=== PATIENT | female | born 1970 ===

== ENCOUNTER 2016-06-27 18:45 | Emergency (ER) | payer BC, MEDICAID ==
[2016-06-27 18:46] VITALS: BMI 29.2
[2016-06-27 18:54] VITALS: BP 126/69; PULSE 84; RESP 20; TEMP 97.1; O2SAT 99
== END 2016-06-27 20:30 | disposition left against medical advice (07) ==
LOC: H.ER 18:45
DX: Z02.89 Encounter for other administrative examinations (principal)

== ENCOUNTER 2016-08-18 15:22 | Emergency (ER) | payer BC, MEDICAID ==
[2016-08-18 15:22] VITALS: BMI 29.2
[2016-08-18 15:52] VITALS: TEMP 97.8
--- NOTE | 2016-08-18 17:20 | ED PDOC ---
HPI: Hypertension/Hypotension Chief Complaint (Provider): Palpitations History Per: Patient History/Exam Limitations: no limitations Onset/Duration Of Symptoms: Sudden Onset (at 3 pm today) Current Symptoms Are (Timing): Gone Now Associated Symptoms: Dizziness, Other (flushing). denies: Chest Pain, Dyspnea, Blurred Vision, Focal Weakness, Headache Quality Of Symptoms: Rapid Heart Rate Severity: None Exacerbating Factor(s): Pos: Recent Change In Medication Additional Complaint(s): 46 year old female with medical history of HTN, DMII, Hyperthyroidism presents to ED due to episode of palpitations associated with flushing of face, jitteriness, and lightheadedness 2 hours ago. Patient states last thursday saw wastewater treatment plant attendant, Dr. Rich Navarro, in which she had an ECHO and EKG done. She was found to have an elevated BP so medication was increased (Lisinopril 10 to 20mg) . Patient states since then has been having feelings that her BP was elevated noting SBP 140-160s. Patient states this episode today had no preceding events. Patient denies chest pain, sob, headache, fever, chills, h/o clots, recent travel, immobilization, back pain, or visual changes. Additional daily meds are : Metoprolol 100mg, Metformin 500mg BID, Methimazole 5mg. PMD: Dr. Nelly Asencio <Van Cohen - Last Filed: 08/19/16 09:26> <Tawny Alcantar - Last Filed: 08/20/16 07:51> Time Seen by Provider: 08/18/16 16:52 Chief Complaint (Nursing): Weakness/Neurological Deficit Past Medical History Reviewed: Historical Data, Nursing Documentation, Vital Signs Vital Signs: Last Vital Signs Temp 97.8 F 08/18/16 15:46 Pulse 66 08/18/16 15:46 Resp 16 08/18/16 15:46 BP 144/94 H 08/18/16 15:46 Pulse Ox 100 08/18/16 15:46 - Medical History PMH: Diabetes, HTN, Hyperthyroidism Denies: Chronic Kidney Disease - Surgical History Other surgeries: thyroid nodule removal - Family History Family History: States: Unknown Family Hx <Van Cohen - Last Filed: 08/19/16 09:26> Vital Signs: Last Vital Signs Temp 97.8 F 08/18/16 15:46 Pulse 59 L 08/19/16 09:27 Resp 18 08/18/16 20:56 BP 118/80 08/18/16 20:56 Pulse Ox 100 08/19/16 09:27 <Tawny Alcantar F - Last Filed: 08/20/16 07:51> - Home Medications Home Medications: Ambulatory Orders Medication Instructions Recorded Aspirin 81 mg PO PRN PRN 11/23/14 Loratadine [Claritin] 10 mg PO DAILY 11/23/14 Metformin Hydrochloride [Metformin] 500 mg PO BID 11/23/14 Methimazole [Tapazole] 7.5 mg PO DAILY 11/23/14 Metoprolol Tartrate [Lopressor] 50 mg PO BID 11/23/14 Docusate [Colace] 100 mg PO BID #14 cap 11/24/14 - Allergies Allergies/Adverse Reactions: Allergies Allergy/AdvReac Type Severity Reaction Status Date / Time pollen extracts Allergy ITCHING Verified 08/18/16 15:46 Review of Systems ROS Statement: Except As Marked, All Systems Reviewed And Found Negative <Van Cohen - Last Filed: 08/19/16 09:26> Physical Exam - Reviewed Nursing Documentation Reviewed: Yes Vital Signs Reviewed: Yes - Physical Exam Appears: Positive for: Well, Non-toxic, No Acute Distress Head Exam: Positive for: ATRAUMATIC, NORMAL INSPECTION, NORMOCEPHALIC Skin: Positive for: Normal Color, Warm, Dry Eye Exam: Positive for: Normal appearance, EOMI, PERRL ENT: Positive for: Normal ENT Inspection Neck: Positive for: Normal, Painless ROM, Supple Cardiovascular/Chest: Positive for: Regular Rate, Rhythm. Negative for: Irregularly Irregular Respiratory: Positive for: Normal Breath Sounds. Negative for: Rales, Rhonchi, Wheezing Gastrointestinal/Abdominal: Positive for: Normal Exam, Bowel Sounds (present), Soft. Negative for: Tenderness Back: Positive for: Normal Inspection Extremity: Positive for: Normal ROM. Negative for: Tenderness, Pedal Edema Neurologic/Psych: Positive for: Alert, gis analyst developer II-XII, Oriented, Gait (normal). Negative for: Motor/Sensory Deficits <Van Cohen - Last Filed: 08/19/16 09:26> - Laboratory Results Result Diagrams: 08/18/16 17:10 08/18/16 17:10 - ECG ECG: Positive for: Interpreted By Me, Viewed By Me ECG Rhythm: Positive for: Normal QRS, Normal ST Segment, Sinus Bradycardia Rate: 59 O2 Sat by Pulse Oximetry: 100 Pulse Ox Interpretation: Normal - Progress ED Course And Treament: Time: 1700 Initial impression: Plan: * CBC * CMP * TSH * D-DIMER * TROPONIN * CARDIAC MONITORING * EKG * POC GLUCOSE * RE-EVAL Time: 1830 D-dimer elevated 0.60. Will obtain CTA at this time. Discussed finding with patient. Time: 1900 Patient signed out to Attending Dr. Alcantar pending CTA. <Van Cohen - Last Filed: 08/19/16 09:26> - Laboratory Results Result Diagrams: 08/18/16 17:10 08/18/16 17:10 <Tawny Alcantar - Last Filed: 08/20/16 07:51> Medical Decision Making Medical Decision Makin yo with palpitations. - labs - CT chest WNL <Tawny Alcantar - Last Filed: 08/20/16 07:51> Disposition - Disposition Disposition Time: 20:56 <Van Cohen - Last Filed: 08/19/16 09:26> <Tawny Alcantar - Last Filed: 08/20/16 07:51> - Clinical Impression Clinical Impression: Palpitations - Disposition Referrals: Nelly Asencio [Family Provider] - Condition: STABLE Additional Instructions: CONTINUE CURRENT MEDICATIONS. Instructions: Radiological Ionic Contrast Media (By injection), Palpitations ( ED)
[2016-08-18 17:40] LABS: BASO # 0.1 K/uL (0.0-0.2); BASO % 0.9 % (0.0-2.0); EOS # 0.1 K/uL (0.0-0.7); HEMATOCRIT 39.8 % (34.0-47.0); LYMPH # 1.8 K/uL (1.0-4.3); MEAN CELL VOLUME 85.5 fl (81.0-99.0); MEAN CORPUSCULAR HEMOGLOBIN 29.5 pg (27.0-31.0); MEAN CORPUSCULAR HGB CONC 34.5 g/dL (33.0-37.0); MONO # 0.5 K/uL (0.0-0.8); MONO % 5.3 % (0.0-10.0); NEUT # 6.3 K/uL (1.8-7.0); NEUT % 71.8 % (50.0-75.0); NRBC % 0.1 % (0.0-0.0); RED CELL DISTRIBUTION WIDTH 13.4 % (11.5-14.5); WHITE BLOOD COUNT 8.7 K/uL (4.8-10.8)
[2016-08-18 18:24] LABS: ALB/GLOB RATIO 1.4 (1.0-2.1); ALKALINE PHOSPHATASE 64 U/L (38-126); ALT/SGPT 47 U/L (9-52); AST/SGOT 36 U/L (14-36); BILIRUBIN,TOTAL 0.7 mg/dl (0.2-1.3); BLOOD UREA NITROGEN 14 mg/dl (7-17); CALCIUM 9.5 mg/dL (8.4-10.2); CARBON DIOXIDE 28 mmol/L (22-30); CHLORIDE 99 mmol/L (98-107); GFR AFRICAN-AMERICAN > 60; GLUCOSE,RANDOM 120 mg/dL (65-105); POTASSIUM 3.5 MMOL/L (3.6-5.0); SODIUM 139 mmol/l (132-148); TOTAL PROTEIN 7.9 G/DL (6.3-8.2)
[2016-08-18] MEDS ORDERED: Sodium Chloride 0.9% 50 ML IV ONE (18:46)
[2016-08-18] MEDS ORDERED: Iodixanol 320 MG/ML 100 ML BOTTLE IV ONE (18:47)
[2016-08-18 18:55] LABS: THYROID STIMULATING HORMONE 1.67 mIU/ML (0.46-4.68)
--- NOTE | 2016-08-18 20:21 | CT ---
EXAM: CT Angiography Chest With Intravenous Contrast CLINICAL HISTORY: 46 years old, female; Signs and symptoms; Other: Palpitations; Patient HX: Pat C/O of palpitation, , denies chest pain dyspnea TECHNIQUE: Axial computed tomographic angiography images of the chest with intravenous contrast using pulmonary embolism protocol. This CT exam was performed using one or more of the following dose reduction techniques: automated exposure control, adjustment of the mA and/or kV according to patient size, and/or use of iterative reconstruction technique. MIP reconstructed images were created and reviewed. Coronal and sagittal reformatted images were created and reviewed. CONTRAST: 90 mL of VISIPAQUE 320 administered intravenously. EXAM DATE/TIME: 08/18/2016 6:23 PM COMPARISON: There are no prior studies for comparison. FINDINGS: Artifacts: Motion artifact degrades image quality. Heart, aorta and Pulmonary arteries: Heart size is normal. There is no pericardial effusion.There is no aneurysm or dissection. There is perfusion of the 3 arch vessels.There are no pulmonary emboli. Lungs and pleural spaces: Trachea and main bronchi are patent. There is no focal consolidation. There is minimal dependent atelectasis. There is minimal scarring at the lung bases. There are no effusions Mediastinum: Esophagus is unremarkable. There is no mediastinal or hilar adenopathy. Thyroid: Thyroid is only partially imaged. Bones/joints: There are degenerative changes in the osseus structures. Soft tissues: unremarkable Lymph nodes: See above. Upper abdomen: There are no acute abnormalities in the visualized portion of the abdomen. IMPRESSION: No aneurysm, dissection or pulmonary embolus; no focal pneumonia
[2016-08-18 20:57] VITALS: BP 118/80; RESP 18
--- NOTE | 2016-08-19 01:46 | CARD ---
APPROVED REPORT EKG Measurement Heart [id number] <Conclusion> Sinus bradycardia Otherwise normal ECG
[2016-08-19 09:28] VITALS: PULSE 59; O2SAT 100
== END 2016-08-18 20:57 | disposition home or self-care (01) ==
LOC: H.ER 15:22
DX: R00.2 Palpitations (principal); R42 Dizziness and giddiness; E05.90 Thyrotoxicosis, unspecified without thyrotoxic crisis or storm; E11.9 Type 2 diabetes mellitus without complications; I10 Essential (primary) hypertension; Z79.82 Long term (current) use of aspirin; Z79.84 Long term (current) use of oral hypoglycemic drugs
CPT/HCPCS: 71275; 80053; 81025; 82948; 84443; 84484; 85025; 85378; 93005; 99285; Q9967

== ENCOUNTER 2017-02-27 11:24 | Emergency (ER) | payer BC, MEDICAID ==
[2017-02-27 11:25] VITALS: BMI 29.2
[2017-02-27 11:35] VITALS: BP 148/67; PULSE 73; RESP 18; TEMP 97.3; O2SAT 97
--- NOTE | 2017-02-27 11:56 | ED PDOC ---
HPI: General Adult Time Seen by Provider: 02/27/17 11:47 Chief Complaint (Nursing): Flu-like Symptoms Chief Complaint (Provider): Flu-like Symptoms History Per: Patient History/Exam Limitations: no limitations Onset/Duration Of Symptoms: Days (x3) Current Symptoms Are (Timing): Still Present Additional Complaint(s): Tiffanie is a 46 y/o female who presents to the ED complaining of a sore throat, cough, congestion, and body aches, since Thursday. Cough is productive of green sputum. Denies any fever, nausea, vomiting, chest pain, shortness of breath, dizziness, headache, numbness or weakness. Patient does report back pain associated with coughing. She denies taking any medications for relief of symptoms. PMD: Dr. Nelly Asencio Past Medical History Reviewed: Historical Data, Nursing Documentation, Vital Signs Vital Signs: Last Vital Signs Temp 97.3 F L 02/27/17 11:32 Pulse 73 02/27/17 11:32 Resp 18 02/27/17 11:32 BP 148/67 02/27/17 11:32 Pulse Ox 97 02/27/17 12:43 - Medical History PMH: Diabetes, HTN, Hyperthyroidism Denies: Chronic Kidney Disease - Surgical History Surgical History: No Surg Hx - Family History Family History: States: Unknown Family Hx - Social History Alcohol: None Drugs: Denies - Home Medications Home Medications: Ambulatory Orders Medication Instructions Recorded Aspirin 81 mg PO PRN PRN 11/23/14 Loratadine [Claritin] 10 mg PO DAILY 11/23/14 Metformin Hydrochloride [Metformin] 500 mg PO BID 11/23/14 Methimazole [Tapazole] 7.5 mg PO DAILY 11/23/14 Metoprolol Tartrate [Lopressor] 50 mg PO BID 11/23/14 Docusate [Colace] 100 mg PO BID #14 cap 11/24/14 Azithromycin [Zithromax] 250 mg PO DAILY 5 Days tab 02/27/17 Benzonatate [Tessalon Perles] 100 mg PO BID PRN 5 Days sgl 02/27/17 Ibuprofen [Motrin] 600 mg PO TID 7 Days tab 02/27/17 - Allergies Allergies/Adverse Reactions: Allergies Allergy/AdvReac Type Severity Reaction Status Date / Time pollen extracts Allergy ITCHING Verified 08/18/16 15:46 Review of Systems ROS Statement: Except As Marked, All Systems Reviewed And Found Negative Constitutional: Positive for: Other (body aches). Negative for: Fever, Chills ENT: Positive for: Nose Congestion, Throat Pain Cardiovascular: Negative for: Chest Pain Respiratory: Positive for: Cough, Sputum. Negative for: Shortness of Breath Gastrointestinal: Negative for: Nausea, Vomiting, Diarrhea Musculoskeletal: Positive for: Back Pain (with cough). Negative for: Arm Pain, Leg Pain Neurological: Negative for: Weakness, Numbness, Headache, Dizziness Physical Exam - Reviewed Nursing Documentation Reviewed: Yes Vital Signs Reviewed: Yes - Physical Exam Appears: Positive for: Non-toxic, No Acute Distress Head Exam: Positive for: ATRAUMATIC, NORMAL INSPECTION, NORMOCEPHALIC Skin: Positive for: Normal Color, Warm, Dry Eye Exam: Positive for: EOMI, Normal appearance, PERRL ENT: Positive for: Normal ENT Inspection Neck: Positive for: Normal, Painless ROM Cardiovascular/Chest: Positive for: Regular Rate, Rhythm. Negative for: Murmur Respiratory: Positive for: Normal Breath Sounds. Negative for: Accessory Muscle Use, Wheezing, Respiratory Distress Gastrointestinal/Abdominal: Positive for: Normal Exam, Soft. Negative for: Tenderness Back: Positive for: Normal Inspection. Negative for: L CVA Tenderness, R CVA Tenderness, Vertebral Tenderness Extremity: Positive for: Normal ROM. Negative for: Pedal Edema, Deformity Neurologic/Psych: Positive for: Alert, Oriented (x3) - Laboratory Results Interpretation Of Abn Labs: flu neg - ECG O2 Sat by Pulse Oximetry: 97 (RA) Pulse Ox Interpretation: Normal - Progress ED Course And Treament: 1307: Stable. AAOx3. Pain free. Likely viral. Will rx zpak for pt. to use if not better in 5 days. Medical Decision Making Medical Decision Making: Time: 12:14 Initial Plan: --Influenza A B stat --Motrin 600 mg PO --Tessalon Perles 100 mg PO Scribe Attestation: Documented by Pooja Gilliland, acting as a scribe for Laureano Salazar MD Provider Scribe Attestation: All medical record entries made by the Scribe were at my direction and personally dictated by me. I have reviewed the chart and agree that the record accurately reflects my personal performance of the history, physical exam, medical decision making, and the department course for this patient. I have also personally directed, reviewed, and agree with the discharge instructions and disposition. Disposition - Clinical Impression Clinical Impression: URI (upper respiratory infection) - Patient ED Disposition Is Patient to be Admitted: No Counseled Patient/Family Regarding: Studies Performed, Diagnosis, Need For Followup, Rx Given - Disposition Referrals: [facility] [Outside] - 03/02/17 Disposition: Routine/Home Disposition Time: 13:08 Condition: STABLE Additional Instructions: Return if not better in 5 days. Start antibiotics if not margo in 4-5 days. Prescriptions: Azithromycin [Zithromax] 250 mg PO DAILY 5 Days tab Benzonatate [Tessalon Perles] 100 mg PO BID PRN 5 Days sgl PRN Reason: Cough Ibuprofen [Motrin] 600 mg PO TID 7 Days tab Instructions: Upper Respiratory Infection (ED) Forms: [facility] ED School/Work Excuse
== END 2017-02-27 13:17 | disposition home or self-care (01) ==
LOC: H.ER 11:24
DX: J06.9 Acute upper respiratory infection, unspecified (principal); E05.90 Thyrotoxicosis, unspecified without thyrotoxic crisis or storm; E11.9 Type 2 diabetes mellitus without complications; I10 Essential (primary) hypertension; Z79.84 Long term (current) use of oral hypoglycemic drugs

== ENCOUNTER 2017-07-23 19:09 | Emergency (ER) | payer BC ==
[2017-07-23 19:09] VITALS: BMI 29.2
[2017-07-23 19:34] VITALS: RESP 16; TEMP 97.8; O2SAT 100
--- NOTE | 2017-07-23 20:21 | ED PDOC ---
HPI: General Adult Time Seen by Provider: 07/23/17 19:47 Chief Complaint (Nursing): Back Pain Chief Complaint (Provider): my pressure is high again History Per: Patient History/Exam Limitations: no limitations Onset/Duration Of Symptoms: Hrs (2), Sudden Onset Current Symptoms Are (Timing): Intermittent Episodes Severity: Mild Recently: Treated By A Physician Additional Complaint(s): 47yo female hx HTN and DM, presents c/o concern for elevated blood pressure, R shoulder "soreness" with movement, and slight anxiety and dizziness. Started while she was at [employer] with her daughter. States been working w her PMD at [facility] for elevated BP- recently increased lisinopril to 25mg daily and remains on metoprolol 100mg once daily. Denies chest pain, SOB, headache, weakness, change in vision, speech or syncope. Past Medical History Reviewed: Historical Data, Nursing Documentation, Vital Signs Vital Signs: Last Vital Signs Temp 97.8 F 07/23/17 19:28 Pulse 57 L 07/23/17 22:01 Resp 16 07/23/17 19:28 BP 138/78 07/23/17 22:01 Pulse Ox 100 07/23/17 20:22 - Medical History PMH: Diabetes, HTN, Hyperthyroidism Denies: Chronic Kidney Disease - Surgical History Other surgeries: thyroid, breast aug, cosmetic procedures - Family History Family History: States: Unknown Family Hx - Living Arrangements Living Arrangements: With Family - Social History Current smoker - smoking cessation education provided: No - Home Medications Home Medications: Ambulatory Orders Medication Instructions Recorded Aspirin 81 mg PO PRN PRN 11/23/14 Loratadine [Claritin] 10 mg PO DAILY 11/23/14 Metformin Hydrochloride [Metformin] 500 mg PO BID 11/23/14 Methimazole [Tapazole] 7.5 mg PO DAILY 11/23/14 Metoprolol Tartrate [Lopressor] 50 mg PO BID 11/23/14 Docusate [Colace] 100 mg PO BID #14 cap 11/24/14 Azithromycin [Zithromax] 250 mg PO DAILY 5 Days tab 02/27/17 Benzonatate [Tessalon Perles] 100 mg PO BID PRN 5 Days sgl 02/27/17 Ibuprofen [Motrin] 600 mg PO TID 7 Days tab 02/27/17 - Allergies Allergies/Adverse Reactions: Allergies Allergy/AdvReac Type Severity Reaction Status Date / Time pollen extracts Allergy ITCHING Verified 08/18/16 15:46 Review of Systems Constitutional: Negative for: Fever Cardiovascular: Positive for: Palpitations. Negative for: Chest Pain Respiratory: Negative for: Cough, Shortness of Breath Gastrointestinal: Negative for: Nausea, Abdominal Pain Genitourinary Female: Negative for: Dysuria Musculoskeletal: Positive for: Shoulder Pain. Negative for: Neck Pain, Arm Pain , Leg Pain Skin: Negative for: Rash, Lesions, Jaundice Neurological: Positive for: Dizziness. Negative for: Weakness, Numbness Psych: Positive for: Anxiety. Negative for: Depression Physical Exam - Reviewed Nursing Documentation Reviewed: Yes Vital Signs Reviewed: Yes - Physical Exam Appears: Positive for: Well, Non-toxic, No Acute Distress Head Exam: Positive for: ATRAUMATIC, NORMAL INSPECTION, NORMOCEPHALIC Skin: Positive for: Normal Color, Warm, DRY Eye Exam: Positive for: EOMI, Normal appearance, PERRL ENT: Positive for: Normal ENT Inspection Neck: Positive for: Normal, Painless ROM Cardiovascular/Chest: Positive for: Regular Rate, Rhythm. Negative for: Bradycardia, Tachycardia, Irregularly Irregular Respiratory: Positive for: CNT, Normal Breath Sounds Pulses-Radial (L): 3+/4+ Pulses-Radial (R): 3+/4+ Gastrointestinal/Abdominal: Positive for: Soft. Negative for: Tenderness Back: Positive for: Normal Inspection Extremity: Positive for: Normal ROM Neurologic/Psych: Positive for: Alert, pulmonary function technician II-XII, Oriented. Negative for: Motor/Sensory Deficits - Laboratory Results Result Diagrams: 07/23/17 20:19 07/23/17 20:19 - ECG O2 Sat by Pulse Oximetry: 100 Medical Decision Making Medical Decision Making: labs obtained and reviewed, no concerning abnormalities Clonidine 0.1mg given for elevated BP w improvement Symptoms resolved. Continued to deny chest pain or SOB. Wanted to go home, offered hospital observation but she declined as had appt w cardiology Dr Navarro scheduled day after ED visit.. Indications for return to ER discussed. Disposition - Clinical Impression Clinical Impression: Hypertension, Palpitations - Patient ED Disposition Is Patient to be Admitted: No Counseled Patient/Family Regarding: Studies Performed, Diagnosis, Need For Followup - Disposition Referrals: Wally Navarro MD [Staff Provider] - Disposition: Routine/Home Disposition Time: 23:01 Condition: STABLE Additional Instructions: Discuss your blood pressure medications (dose and timing) with your doctor/ art appraiser. Bring your medications to your appointment. Return to ER for any worse or new symptoms. Instructions: High Blood Pressure in Adults, Palpitations (DC) Forms: [employer] (Indonesian)
[2017-07-23 20:40] LABS: BASO # 0.1 K/uL (0.0-0.2); BASO % 1.1 % (0.0-2.0); EOS # 0.2 K/uL (0.0-0.7); EOS % 2.5 % (0.0-4.0); HEMOGLOBIN 13.2 g/dL (12.0-16.0); LYMPH # 2.4 K/uL (1.0-4.3); LYMPH % 30.1 % (20.0-40.0); MEAN CELL VOLUME 88.8 fl (81.0-99.0); MEAN CORPUSCULAR HEMOGLOBIN 31.1 pg (27.0-31.0); MEAN CORPUSCULAR HGB CONC 35.1 g/dL (33.0-37.0); MEAN PLATELET VOLUME 7.9 fl (7.2-11.7); MONO # 0.5 K/uL (0.0-0.8); MONO % 6.4 % (0.0-10.0); NEUT # 4.8 K/uL (1.8-7.0); NEUT % 59.9 % (50.0-75.0); NRBC % 0.1 % (0.0-0.0); RBC 4.25 Mil/uL (3.80-5.20); RED CELL DISTRIBUTION WIDTH 14.3 % (11.5-14.5)
[2017-07-23 20:48] LABS: ALB/GLOB RATIO 1.1 (1.0-2.1); ALBUMIN 4.3 g/dL (3.5-5.0); ALT/SGPT 53 U/L (9-52); AST/SGOT 34 U/L (14-36); BLOOD UREA NITROGEN 17 mg/dl (7-17); CALCIUM 9.1 mg/dL (8.4-10.2); GFR AFRICAN-AMERICAN > 60; GFR NON-AFRICAN AMERICAN > 60
[2017-07-23] MEDS ORDERED: Potassium Chloride 20 mEq ER Tab PO ONE ×2 (21:58→22:00)
[2017-07-23 22:02] VITALS: BP 138/78; PULSE 57
--- NOTE | 2017-07-24 08:44 | RAD ---
HISTORY: dizzy HTN COMPARISON: Chest radiograph dated 11/08/2014 TECHNIQUE: Chest PA and lateral FINDINGS: LUNGS: No active pulmonary disease. PLEURA: No significant pleural effusion identified. No pneumothorax apparent. CARDIOVASCULAR: Normal. OSSEOUS STRUCTURES: No significant abnormalities. VISUALIZED UPPER ABDOMEN: Normal. OTHER FINDINGS: None. IMPRESSION: No active disease.
--- NOTE | 2017-07-25 11:36 | CARD ---
APPROVED REPORT EKG Measurement Heart [id number] <Conclusion> Sinus bradycardia Nonspecific T wave abnormality Abnormal ECG
== END 2017-07-23 22:49 | disposition home or self-care (01) ==
LOC: H.ER 19:09
DX: I10 Essential (primary) hypertension (principal); R00.2 Palpitations